=== PATIENT | female | born 1980 | race Caucasian/White ===

== ENCOUNTER 2019-10-06 17:27 | Emergency (ER) | payer OTHER, SELFPAY ==
[2019-10-06] VITALS (7 sets, daily range): BP systolic 112–150; BP diastolic 61–84; PULSE 67–107; RESP 14–20; TEMP 36.2–37.2; O2SAT 99–100
--- NOTE | ~2019-10-06 | CT_ITS ---
EXAMINATION: CT abdomen pelvis w con DATE: 10/06/2019 20:10 INDICATION: Left lower abdominal pain. Burning with urination. TECHNIQUE: Computed tomography (CT) of the abdomen and pelvis was performed with 100 cc Omnipaque 350 intravenous contrast. The dose-length product was 234.86 mGy-cm. Automated exposure control and iter ative reconstruction technique were employed. COMPARISON: None. FINDINGS: Lung bases are unremarkable. Heart size normal. No significant pleural or pericardial effus ion. The liver, spleen, pancreas, adrenal glands and kidneys are unremarkable. Gallbladder is present. Nor mal appendix. There is mild thickening of the descending and sigmoid colon without obstruction. No ev idence for perforation or abscess. Trace free fluid. No acute osseous abnormality. Mild bladder wall thickening. Cannot exclude cystitis. IMPRESSION: 1. Mild thickening of the descending and sigmoid colon which may be due to underdistention or colitis . 2: Mild bladder wall thickening. Cannot exclude cystitis. Reviewed, dictated and finalized at location A. IMPRESSION: 1. Mild thickening of the descending and sigmoid colon which may be due to unde rdistention or colitis. 2: Mild bladder wall thickening. Cannot exclude cystitis.
[2019-10-06 17:43] LABS: Basophils Percent Auto 0.3 % (0.2-1.2); Eosinophils Absolute Auto 0.1 K/mm3 (0-0.3); Eosinophils Percent Auto 0.7 % (0-4.4); Hematocrit 35.8 % (37.0-47.0); Immature Granulocyte Absolute 0.01 K/mm3 (0.00-0.031); Immature Granulocyte Percent A 0.1 % (0-0.5); Lymphocytes Percent Auto 16.2 % (18.3-44.2); Mean Corpuscular HGB Conc 33.5 g/dl (32-36); Mean Corpuscular Volume 89.5 fl (80-100); Mean Platelet Volume 11.9 fl (7.4-10.4); Monocytes Absolute Auto 0.8 K/mm3 (0.1-0.6); Monocytes Percent Auto 11.5 % (2.6-8.5); Neutrophils Absolute Auto 4.8 K/mm3 (1.3-6.7); Neutrophils Percent Auto 71.2 % (45.5-73.1); Platelet Count Result 185 k/mm3 (150-375); Red Cell Distribution Width 12.1 % (11.5-14.5); White Blood Count 6.8 K/mm3 (4.5-10.0)
[2019-10-06 17:55] LABS: Alanine Aminotransferase 10 U/L (4-35); Albumin Level 3.9 g/dL (3.5-5.1); Alkaline Phosphatase 71 U/L (38-126); Aspartate Amino Transferase 15 U/L (14-36); Bilirubin,Total 0.2 mg/dL (0.2-1.3); Blood Urea Nitrogen 11 mg/dL (7-17); Calcium 8.6 mg/dL (8.4-10.2); Carbon Dioxide 25 mmol/L (22-30); Chloride 102 mmol/L (98-107); Estimated Glomerular Filt Rate > 60; Glucose 82 mg/dL (65-105); Lipase 29 U/L (23-300); Potassium 3.4 mmol/L (3.4-5.0); Sodium 134 mmol/L (137-145)
[2019-10-06 18:05] LABS: Add Urine Microscopic? YES; Appearance Urine Cloudy (Clear); Bacteria Urine Trace /hpf; Bilirubin Urine Negative (Negative); Blood Urine 1+ (Negative); Color Urine Yellow (Yellow); Glucose Urine UA Negative (Negative); Ketones Urine Negative (Negative); Leukocyte Esterase Ur 3+ LEU/UL (Negative); Mucus Urine Rare /lpf; Nitrate Urine Negative (Negative); Protein Urine Negative (Negative); Renal Epithelial Cells Urine Rare /hpf (None Seen); Specific Grav Ur 1.006 (1.001-1.035); Squamous Epithelial Cell Urine Many /hpf (Few); Urobilinogen Urine Negative mg/dL (<2.0); WBC Clumps Urine Present /HPF; WBC Urine >75 /hpf
--- NOTE | 2019-10-06 19:09 | ED.ABDPAIN ---
HPI - Abdominal Pain General Chief Complaint: Abdominal Pain Stated Complaint: abd pain x 3 days Time Seen by Provider: 10/06/19 18:55 Source: patient Mode of arrival: ambulatory Limitations: no limitations History of Present Illness HPI narrative: This patient is a 39 year old female who presents for evaluation of left lower abdominal pain for 3 days . She reports constant sharp . Today she feels like her pain is moving to RLQ. She has not taken anything for her pain. She denies vomiting or diarrhea. She does have increased urination and dysuria. She denies hematuria. MD elicited complaint: abdominal pain Onset (ago): day(s) (3) Pain Consistency: constant Location: LLQ Quality: sharp Related Data Allergies Allergy/AdvReac Type Severity Reaction Status Date / Time No Known Allergies Allergy Unknown Verified 10/06/19 18:34 Review of Systems Review of Systems: All systems reviewed & are unremarkable except as noted in HPI and below Constitutional: Constitutional: Denies chills and Denies fever(s) Cardiovascular: Cardiovascular: Denies chest pain Gastrointestinal: Gastrointestinal: Reports abdominal pain, Denies bloating, Denies constipation, Denies diarrhea and Denies vomiting Genitourinary: Genitourinary: Denies hematuria, Reports nocturia and Reports flank pain Musculoskeletal: Musculoskeletal: Reports back pain PMFSH Past Medical History Medical History (Updated 10/06/19 @ 21:18 by Roro Guerrero MD) Patient denies medical problems Surgical History Surgical History History of tubal ligation Social History Social History Smoking packs per day: 0.5 Smoking cigarettes per day: 10.0 Smoking status: Current every day smoker Alcohol intake: never Gender identity (if verbalized by the patient): Female Exam Narrative: Exam Narrative: GENERAL: Well-appearing, well-nourished, mild distress due to pain HEAD: Normocephalic, atraumatic EYES: PERRLA and EOMI, conjunctiva clear without discharge THROAT:Mucous membranes moist, Oropharynx normal without erythema, exudate, peritonsillar swelling or fluctuance NECK: Supple, without lymphadenopathy or mass RESPIRATORY: No respiratory distress, Airway patent, Respirations non-labored, Clear to auscultation without rales, rhonchi or wheeze HEART: Regular rate and rhythm. No murmur heard. Normal peripheral pulses. ABDOMEN: Soft,LLQ tenderness, nondistended, normal active bowel sounds. No masses. No rebound or guarding, No organomegaly. EXTREMITIES: No edema, normal strength with full range of motion. SKIN: Warm, dry, normal color without rash NEURO: Alert and oriented x3. CN 2-12 grossly intact. No focal deficits. PSYCH: Normal mood and affect. Course Reevaluation(s) Reevaluation #1: Patient appears to be more comfortable. I discussed CT results . She will be treated for UTI. Date: 10/06/19 Time: 21:10 Vital Signs Vital signs: Vital Signs Temperature 98.9 F 10/06/19 17:34 Pulse Rate 107 H 10/06/19 17:34 Respiratory Rate 17 10/06/19 17:34 Blood Pressure 150/76 H 10/06/19 17:34 Pulse Oximetry 100 10/06/19 17:34 Temperature 97.2 F L 10/06/19 21:47 Pulse Rate 69 10/06/19 21:47 Respiratory Rate 16 10/06/19 21:47 Blood Pressure 129/61 10/06/19 21:47 Pulse Oximetry 99 10/06/19 21:47 MDM - Abdominal Pain Lab Data Attestation: I reviewed the patient's lab results. Result diagrams: 10/06/19 17:37 10/06/19 17:37 Labs: Lab Results 10/06/19 10/06/19 10/06/19 Range/Units 17:37 17:37 17:45 WBC 6.8 (4.5-10.0) K/mm3 RBC 4.00 L (4.2-5.4) M/mm3 Hgb 12.0 (12.0-15.0) g/dL Hct 35.8 L (37.0-47.0) % MCV 89.5 (80-100) fl MCH 30.0 (26-34) pg MCHC 33.5 (32-36) g/dl RDW 12.1 (11.5-14.5) % Plt Count 185 (150-375) k/mm3 MPV 11.9 H (
[2019-10-06] MEDS: MORPHINE SULFATE 4 MG/ML INJ IV PUSH (19:15)
[2019-10-06] MEDS: ONDANSETRON INJ 4 MG/2 ML VIAL IV PUSH (19:15)
[2019-10-06] MEDS: LACTATED RINGERS 1,000 ML 999 ML IV CONT (19:20)
== END 2019-10-06 21:49 | disposition home or self-care (01) ==
PROVIDERS: Family Medicine; Emergency Provider General Practice
DX: N30.90 Cystitis, unspecified without hematuria (principal); F17.210 Nicotine dependence, cigarettes, uncomplicated; R93.3 Abnormal findings on diagnostic imaging of other parts of digestive tract
CPT/HCPCS: 36415; 74177; 80053; 81001; 81025; 83690; 85025; 87077; 87086; 87088; 87186; 96361; 96365; 96375; 99284; J0131; J0696; J2270; J2405; J7120; Q9967

== ENCOUNTER 2020-10-16 18:01 | Emergency (ER) | payer OTHER, SELFPAY ==
[2020-10-16 18:03] VITALS: BP 136/99; PULSE 119; RESP 18; TEMP 36.8; O2SAT 100
--- NOTE | 2020-10-16 18:50 | ED.DENTAL ---
HPI - Dental/Oral General Chief complaint: Dental/Oral Stated complaint: broken tooth Time Seen by Provider: 10/16/20 18:09 Source: patient Mode of arrival: ambulatory Limitations: no limitations History of Present Illness HPI Narrative: Patient is a 40-year-old female who presents complaining of right upper dental pain. Patient reports right upper dental pain x3 days. Reports taking [id number] medications without relief. She denies significant medical history. She denies all other complaints at this time. Patient reports pain is 10/10. MD Complaint: tooth pain Related Data Allergies Allergy/AdvReac Type Severity Reaction Status Date / Time No Known Allergies Allergy Unknown Verified 10/16/20 18:40 Review of Systems Review of Systems: Narrative: CONSTITUTIONAL: Denies fever, chills, or sweats. EYES: Denies visual changes, redness, or discharge. ENT: Denies rhinorrhea, congestion, sore throat, or otalgia. Reports right upper dental pain CARDIOVASCULAR: Denies chest pain, palpitations, or edema. RESPIRATORY: Denies cough or dyspnea. GASTROINTESTINAL: Denies abdominal pain, nausea, vomiting, or diarrhea. GENITOURINARY: Denies dysuria or hematuria. SKIN: Denies rash or itching. MUSCULOSKELETAL: Denies back pain, joint pain, or myalgia. NEUROLOGIC: Denies headache, numbness, dizziness, or weakness. PSYCHIATRIC: Denies anxiety or depression. PMFSH Past Medical History Medical History Patient denies medical problems Surgical History Surgical History History of tubal ligation Social History Social History (Updated 10/16/20 @ 18:51 by DEACON Mahoney) Smoking packs per day: 0.5 Smoking cigarettes per day: 10.0 Smoking status: Current every day smoker Tobacco type: cigarettes Alcohol intake: never Substance use: current Substance use type: marijuana Gender identity (if verbalized by the patient): Female Comments At the time of signature, I have reviewed and agree with nursing past medical, surgical, social, and family history unless otherwise noted. Please see nursing chart for further information. There is no relevant family history pertinent to the presenting complaint. Exam Narrative: Exam Narrative: GENERAL: Well-appearing, well-nourished, and in no acute distress. HEAD: Normocephalic, atraumatic. EYES: EOMI. No redness or drainage. Conjunctiva are normal. ENT: Mucous membranes pink and moist. Multiple dental caries and dental fractures, poor dentition CHEST: No respiratory distress. HEART: Regular rate and rhythm. EXTREMITIES: Normal range of motion. SKIN: Warm, dry, no rash. NEURO: No focal deficits. Alert and oriented x3. Gait steady. PSYCH: Normal affect. No signs of depression or anxiety. Course Vital Signs Vital signs: Vital Signs Temperature 36.8 C 10/16/20 18:03 Pulse Rate 119 H 10/16/20 18:03 Respiratory Rate 18 10/16/20 18:03 Blood Pressure 136/99 H 10/16/20 18:03 Pulse Oximetry 100 10/16/20 18:03 Temperature 36.8 C 10/16/20 18:03 Pulse Rate 119 H 10/16/20 18:03 Respiratory Rate 18 10/16/20 18:03 Blood Pressure 136/99 H 10/16/20 18:03 Pulse Oximetry 100 10/16/20 18:03 MDM - Dental/Oral MDM Narrative Medical decision making narrative: Discussed with patient most likely dental infection. Patient has poor dentition with multiple dental caries and dental fractures as well as missing teeth. Discussed with patient the need to find a dentist. Patient started on antibiotics at this time. Patient is stable for discharge to home with outpatient follow-up as needed. Differential Diagnosis Differential diagnosis: Likely gingival abscess, dental caries, toothache, dental abscess and fracture of tooth Critical Care Time Critical Care Time Critical Care Time: No Discharge Plan Discharge Clinical Impression: Toothache
[2020-10-16 19:14] VITALS: BP 136/85; PULSE 86; RESP 16; TEMP 36.2; O2SAT 100
== END 2020-10-16 19:15 | disposition home or self-care (01) ==
PROVIDERS: Emergency Provider Nurse Practitioner
DX: K02.9 Dental caries, unspecified (principal); F17.210 Nicotine dependence, cigarettes, uncomplicated
CPT/HCPCS: 99283

== ENCOUNTER 2021-01-08 19:38 | Emergency (ER) | payer OTHER, SELFPAY ==
--- NOTE | ~2021-01-08 | CT_ITS ---
EXAMINATION: CT abdomen pelvis wo con DATE: 01/08/2021 22:56 INDICATION: Abdominal pain. Nausea, vomiting, and diarrhea. TECHNIQUE: Computed tomography (CT) of the abdomen and pelvis was performed without intravenous contr ast. Automated exposure control and iterative reconstruction technique were employed. The dose-length product was 252.04 mGy-cm. COMPARISON: CT abdomen and pelvis 10/06/2019 FINDINGS: The visualized portions of the lung bases demonstrate mild atelectasis. No pleural effusion . The heart size is normal. No pericardial effusion. The liver, gallbladder, spleen, pancreas, adrena l glands, and left kidney are normal. There is a 2 mm stone in right kidney. There are no dilated loo ps of bowel. The appendix is normal. There are no pathologically enlarged lymph nodes. There is no fr ee intraperitoneal fluid. There is mild thoracolumbar spondylosis. IMPRESSION: 1. Small nonobstructing right kidney stone. Reviewed, dictated and finalized at location A.
--- NOTE | ~2021-01-08 | XR_ITS ---
EXAMINATION: XR chest 1V portable DATE: 01/08/2021 21:20 INDICATION: Cough. Loss of taste and smell. TECHNIQUE: A single frontal view of the chest was obtained. COMPARISON: CT abdomen and pelvis 10/06/19 FINDINGS: The chest demonstrates clear lungs without pneumonia, pleural effusion, or pneumothorax. Th e heart size is normal. IMPRESSION: 1. No acute cardiopulmonary disease. Reviewed, dictated and finalized at location A.
[2021-01-08 20:23] VITALS: BP 140/86; PULSE 101; RESP 20; TEMP 36.3; O2SAT 100
[2021-01-08 20:38] LABS: Basophils Absolute Auto 0.1 K/mm3 (0.0-0.1); Basophils Percent Auto 0.7 % (0.2-1.2); Eosinophils Percent Auto 0.6 % (0-4.4); Hematocrit 42.1 % (37.0-47.0); Immature Granulocyte Absolute 0.02 K/mm3 (0.00-0.031); Immature Granulocyte Percent A 0.3 % (0-0.5); Lymphocytes Absolute Auto 1.65 K/mm3 (0.9-3.2); Lymphocytes Percent Auto 22.7 % (18.3-44.2); Mean Corpuscular HGB Conc 33.3 g/dl (32-36); Mean Corpuscular Hemoglobin 30.7 pg (26-34); Mean Corpuscular Volume 92.3 fl (80-100); Mean Platelet Volume 11.3 fl (7.4-10.4); Monocytes Absolute Auto 0.4 K/mm3 (0.1-0.6); Monocytes Percent Auto 5.5 % (2.6-8.5); Neutrophils Absolute Auto 5.1 K/mm3 (1.3-6.7); Neutrophils Percent Auto 70.2 % (45.5-73.1); Platelet Count Result 194 k/mm3 (150-375); Red Blood Count 4.56 M/mm3 (4.2-5.4); Red Cell Distribution Width 12.2 % (11.5-14.5); White Blood Count 7.3 K/mm3 (4.5-10.0)
[2021-01-08 20:48] LABS: Alanine Aminotransferase 12 U/L (4-35); Albumin Level 4.2 g/dL (3.5-5.1); Alkaline Phosphatase 57 U/L (38-126); Anion Gap 6 mmol/L (8-16); Aspartate Amino Transferase 32 U/L (14-36); Bilirubin,Total 0.2 mg/dL (0.2-1.3); Blood Urea Nitrogen 13 mg/dL (7-17); Calcium 8.9 mg/dL (8.4-10.2); Carbon Dioxide 25 mmol/L (22-30); Chloride 111 mmol/L (98-107); Estimated CRCL calculation 54 ml/min; Estimated Glomerular Filt Rate > 60; Glucose 93 mg/dL (65-110); Lipase 37 U/L (23-300); Potassium 3.6 mmol/L (3.4-5.0); Sodium 142 mmol/L (137-145)
--- NOTE | 2021-01-08 21:12 | ED.GENADULT ---
HPI - General Adult General Chief complaint: Nausea/Vomiting/Diarrhea Stated complaint: covid symptoms Time Seen by Provider: 01/08/21 20:59 Source: RN notes reviewed History of Present Illness HPI narrative: Patient presents emergency department from home for nausea. Patient states symptoms began approximately 2 weeks ago states she lost her sense of smell and taste. States she has had a cough this been nonproductive she some intermittent abdominal pain described as cramping and nausea she denies any vomiting or diarrhea. States she did not have a Covid 19 vaccination she denies any fevers or chills chest pain or any other symptoms Related Data Allergies Allergy/AdvReac Type Severity Reaction Status Date / Time No Known Allergies Allergy Unknown Verified 10/16/20 18:40 Review of Systems Review of Systems: Gen.: Denies fevers or chills ENT: Denies congestion reports loss of smell and taste Respiratory: Denies shortness of breath reports cough CV: Denies chest pain or palpitations GI: See HPI Musculoskeletal: Denies back pain or muscle pain Neuro: Denies numbness, tingling, weakness or focal weakness Skin: Denies rash Except as documented, all other systems reviewed and negative [facility] Past Medical History Medical History Patient denies medical problems Surgical History Surgical History History of tubal ligation Social History Social History Smoking packs per day: 0.5 Smoking cigarettes per day: 10.0 Smoking status: Current every day smoker Tobacco type: cigarettes Alcohol intake: never Substance use: current Substance use type: marijuana Gender identity (if verbalized by the patient): Female Exam Narrative: APPEARANCE: No acute distress, nontoxic, resting in bed EYES: EOMI HEENT: Normocephalic, atraumatic, OMM RESPIRATORY: No respiratory distress Clear to auscultation bilaterally with no rhonchi wheezing or rales. CARDIOVASCULAR: Regular rate and rhythm without murmurs rubs or gallops. ABDOMINAL: Soft, nontender, nondistended, no rebound or guarding MUSCULOSKELETAl: Moves all extremities. No clubbing, cyanosis or edema. NEURO: Awake and alert. Following commands, speech normal, no focal deficits SKIN:: Warm, dry. No rashes lesions or abrasions PSYCHIATRIC: Normal affect/mood, Course Course Emergency Course: Patient states she is feeling much better at this time Discussed with patient results of workup and diagnosis. Discussed need for follow-up with primary care, proper use of medication, and reasons to return to the emergency department. Patient understands and agrees to current treatment plan. discussed with patient her Covid swab and need for self-isolation Vital Signs Vital signs: Vital Signs Temperature 97.4 F L 01/08/21 20:23 Pulse Rate 101 H 01/08/21 20:23 Respiratory Rate 20 01/08/21 20:23 Blood Pressure 140/86 01/08/21 20:23 Pulse Oximetry 100 01/08/21 20:23 Temperature 97.4 F L 01/08/21 20:23 Pulse Rate 101 H 01/08/21 20:23 Respiratory Rate 20 01/08/21 20:23 Blood Pressure 140/86 01/08/21 20:23 Pulse Oximetry 100 01/08/21 20:23 Medical Decision Making Vital Signs Vital Signs: Vital Signs Temperature 97.4 F L 01/08/21 20:23 Pulse Rate 101 H 01/08/21 20:23 Respiratory Rate 20 01/08/21 20:23 Blood Pressure 140/86 01/08/21 20:23 Pulse Oximetry 100 01/08/21 20:23 Temperature 97.4 F L 01/08/21 20:23 Pulse Rate 101 H 01/08/21 20:23 Respiratory Rate 20 01/08/21 20:23 Blood Pressure 140/86 01/08/21 20:23 Pulse Oximetry 100 01/08/21 20:23 Lab Data Result diagrams: 01/08/21 20:32 01/08/21 20:32 Labs: Lab Results 01/08/21 01/08/21 01/08/21 Range/Units 20:32 20:32 21:29 WBC 7.3 (4.5-10.0) K/mm3 RBC 4.56
[2021-01-08 21:39] LABS: Add Urine Microscopic? YES; Appearance Urine Cloudy (Clear); Bacteria Urine Trace /hpf; Bilirubin Urine Negative (Negative); Blood Urine 1+ (Negative); Color Urine Straw (Yellow); Glucose Urine UA Negative (Negative); Ketones Urine Negative (Negative); Leukocyte Esterase Ur 3+ LEU/UL (Negative); Nitrate Urine Negative (Negative); Protein Urine Negative (Negative); RBC Urine 51-75 /hpf (0-2); Squamous Epithelial Cell Urine Many /hpf (Few); Urobilinogen Urine Negative mg/dL (<2.0)
[2021-01-08 21:40] LABS: Specific Grav Ur 1.003 (1.001-1.035)
[2021-01-08] MEDS: SODIUM CHLORIDE 0.9% IV 1,000 ML 999 ML IV CONT (21:42)
[2021-01-08] MEDS: ONDANSETRON INJ 4 MG/2 ML VIAL IV PUSH (21:42)
[2021-01-09 00:15] VITALS: BP 134/81; PULSE 82; RESP 18; O2SAT 99
[2021-01-09 16:22] LABS: SARS-CoV-2 RNA PCR Negative
== END 2021-01-09 00:20 | disposition home or self-care (01) ==
PROVIDERS: Emergency Provider Emergency Medicine
DX: N39.0 Urinary tract infection, site not specified (principal); R11.2 Nausea with vomiting, unspecified; F17.210 Nicotine dependence, cigarettes, uncomplicated; Z20.822 Contact with and (suspected) exposure to COVID-19
CPT/HCPCS: 36415; 71045; 74176; 80053; 81001; 81025; 83690; 85025; 87086; 87088; 96361; 96365; 96375; 99284; C9803; J0696; J2405; J7030; U0003; U0005

== ENCOUNTER 2024-01-15 13:29 | Emergency (ER) | payer SELFPAY ==
--- NOTE | ~2024-01-15 | XR_ITS ---
EXAMINATION: XR elbow LT 2V DATE: 01/15/2024 14:47 INDICATION: Left elbow pain TECHNIQUE: Anteroposterior and lateral views of the left elbow were obtained. COMPARISON: None. FINDINGS: Alignment is normal. No fracture or joint effusion. Joint spaces are normal. Soft tissues are unremar kable. IMPRESSION: 1. Negative left elbow radiographs. Reviewed, dictated and finalized at location A.
--- NOTE | ~2024-01-15 | XR_ITS ---
EXAMINATION: XR shoulder LT min 2V DATE: 01/15/2024 14:13 INDICATION: Left shoulder pain TECHNIQUE: AP internally and externally rotated, AP oblique externally rotated and transscapular Y vi ews of the left shoulder were obtained. COMPARISON: None FINDINGS: Normal alignment. No fracture. Glenohumeral joint is normal. Acromioclavicular joint is normal. Soft tissues are unremarkable. Visualized portion of the lungs are clear. IMPRESSION: Negative left shoulder radiographs. Reviewed, dictated and finalized at location A.
[2024-01-15 13:30] VITALS: BP 136/87; PULSE 92; RESP 16; TEMP 36.4; O2SAT 100
--- NOTE | 2024-01-15 14:27 | ED.EXTPRO ---
HPI - Extremity Problem General Chief complaint: Extremity Problem,Nontraumatic Stated complaint: left arm injury Time Seen by Provider: 01/15/24 13:46 History of Present Illness HPI Narrative: 43-year-old female presenting with left shoulder pain. Patient states that for the last 6 months or so she has had left shoulder pain that now radiates into her left elbow. States that it sometimes wakes her from sleeping. Sometimes the pain shoots into her hand. Denies weakness or decreased range of motion. No neck pain or back pain. States that she did recently strike her elbow on something at work. Related Data Allergies Allergy/AdvReac Type Severity Reaction Status Date / Time No Known Allergies Allergy Unknown Verified 01/15/24 13:30 Review of Systems Review of Systems: All systems reviewed & are unremarkable except as noted in HPI and below PMFSH Past Medical History Medical History Patient denies medical problems Surgical History Surgical History History of tubal ligation Social History Social History Smoking packs per day: 0.5 Smoking cigarettes per day: 10.0 Smoking status: Current every day smoker Tobacco type: cigarettes Alcohol intake: never Substance use: current Substance use type: marijuana Gender identity (if verbalized by the patient): Female Exam Narrative: GENERAL: Well-appearing, in no acute distress, pleasant cooperative HEAD: Normocephalic, atraumatic. EYES: PERRLA and EOMI. ENT: grossly unremarkable NECK: Supple. CHEST: No respiratory distress. HEART: Regular rate and rhythm. Normal peripheral pulses. EXTREMITIES: Normal range of motion. mild diffuse tenderness of left shoulder and left elbow, no edema or erythema, ROM intact of shoulder/elbow/wrist SKIN: Warm, dry, no rash. NEURO: Alert and oriented x3. PSYCH: Normal mood and affect. Course Vital Signs Vital signs: Vital Signs Temperature 97.6 F 01/15/24 13:30 Pulse Rate 92 01/15/24 13:30 Respiratory Rate 16 01/15/24 13:30 Blood Pressure 136/87 01/15/24 13:30 Pulse Oximetry 100 01/15/24 13:30 Oxygen Delivery Room Air 01/15/24 13:30 Temperature 97.6 F 01/15/24 13:30 Pulse Rate 92 01/15/24 13:30 Respiratory Rate 16 01/15/24 13:30 Blood Pressure 136/87 01/15/24 13:30 Pulse Oximetry 100 01/15/24 13:30 Oxygen Delivery Room Air 01/15/24 13:30 MDM - Extremity (Nontraumatic) MDM Narrative Medical decision making narrative: 43-year-old female presenting with left arm pain. Vital stable. Exam remarkable for the above. X-ray show no acute abnormalities. Patient is safe for outpatient management. Discussed appropriate follow-up and return precautions. She is agreeable with this plan. Discharged in stable condition. Differential Diagnosis Differential diagnosis: Likely other (Shoulder pain, elbow pain, arm pain) Medical Records Attestation: I reviewed the patient's medical records. Imaging Data Radiologist's impression: ITS Impressions Shoulder X-Ray 01/15/24 14:37 IMPRESSION: Negative left shoulder radiographs. Elbow X-Ray 01/15/24 15:02 IMPRESSION: 1. Negative left elbow radiographs. Critical Care Time Critical Care Time Critical Care Time: No Discharge Plan Discharge Clinical Impression: Left arm pain Patient Disposition: Home, Self-Care Condition: Stable Instructions: Antibiotic Form, Arm Pain (ED) Additional Instructions: The x-rays today show no abnormalities. We are prescribing a muscle relaxer to help with your symptoms. Please also use Tylenol and ibuprofen. Please follow-up with primary care and orthopedic surgery. If your symptoms worsen or other concerning symptoms arise, please return to the ER. Prescriptions: New cycloben
[2024-01-15 15:50] VITALS: BP 135/89; PULSE 79; RESP 18; TEMP 36.5; O2SAT 98
== END 2024-01-15 15:54 | disposition home or self-care (01) ==
PROVIDERS: Emergency Provider Emergency Medicine
DX: M25.512 Pain in left shoulder (principal); M25.522 Pain in left elbow; F17.210 Nicotine dependence, cigarettes, uncomplicated
CPT/HCPCS: 73030; 73070; 99284

== ENCOUNTER 2024-09-08 12:26 | Emergency (ER) | payer SELFPAY ==
[2024-09-08 12:37] VITALS: BP 124/93; PULSE 86; RESP 18; TEMP 36.6; O2SAT 99
--- NOTE | 2024-09-08 14:08 | ED_ITS ---
HPI - Skin/Abscess/Foreign Bdy General Chief complaint: Skin/Abscess/Foreign Body Stated complaint: RASH ALL OVER BODY Time Seen by Provider: 09/08/24 12:46 Source: patient Mode of arrival: ambulatory Limitations: no limitations History of Present Illness HPI narrative: Patient is a 44-year-old female who presents the ED with report of a diffuse rash. Patient reports she noticed a rash around 3 days ago. She states began as small blisters on her lower legs. She has also noticed some lesions on her arms, below her right breast, and on her back. States the lesions pop and then scab over within a couple of days. States the rash is itchy/painful. Denies ever having similar rash like this before. Denies shortness of breath, swelling of lips/tongue, fevers. Denies new medications, soaps, laundry detergents. Related Data Allergies Allergy/AdvReac Type Severity Reaction Status Date / Time codeine Allergy Unknown Verified 09/08/24 12:33 Review of Systems Review of Systems: All systems reviewed & are unremarkable except as noted in HPI. All systems reviewed & are unremarkable except as noted in HPI and below PMFSH Past Medical History Medical History Patient denies medical problems Surgical History Surgical History History of tubal ligation Social History Social History Smoking packs per day: 0.5 Smoking cigarettes per day: 10.0 Smoking status: Current every day smoker Tobacco type: cigarettes Alcohol intake: never Substance use: current Substance use type: marijuana Gender identity (if verbalized by the patient): Female Exam Narrative: GENERAL: Well appearing, well-nourished, non-toxic, in no acute distress. HEAD: Normocephalic, atraumatic. RESPIRATORY: Airway patent, respirations nonlabored. Clear to auscultation bilaterally, no rales, rhonchi, wheezing. CARDIOVASCULAR: Regular rate and rhythm without murmurs, rubs, or gallops. MUSCULOSKELETAL: Moves all extremities. No gross deformities. SKIN: Warm, dry, normal color. Scattered pustular rash to lower extremities, right upper abdomen, back, occasionally on arms. Some lesions are scabbed over. No appreciable drainage, minimal erythema around lesions. NEURO: A&O X3. Speech clear. Cranial nerves II-XII grossly intact. Steady gait. No ataxic movements. PSYCHIATRIC: Appropriate mood and affect. Normal interaction. Course Vital Signs Vital signs: Vital Signs Temperature 97.9 F 09/08/24 12:37 Pulse Rate 86 09/08/24 12:37 Respiratory Rate 18 09/08/24 12:37 Blood Pressure 124/93 H 09/08/24 12:37 Pulse Oximetry 99 09/08/24 12:37 Oxygen Delivery Room Air 09/08/24 12:37 Temperature 97.9 F 09/08/24 12:37 Pulse Rate 80 09/08/24 15:49 Respiratory Rate 18 09/08/24 15:49 Blood Pressure 135/94 H 09/08/24 15:49 Pulse Oximetry 100 09/08/24 15:49 Oxygen Delivery Room Air 09/08/24 12:37 MDM - Skin/Abscess/Foreign Bdy MDM Narrative Medical decision making narrative: Pustular rash. Unclear etiology. Denies any new triggers. Will cover for bacterial process/MRSA with Bactrim. Advised to take Benadryl as needed for itching. Advised to avoid scratching or touching lesions. There is no evidence of anaphylaxis or systemic allergic reaction. Patient did request to be tested for STDs, including HIV and syphilis. Gonorrhea, chlamydia negative. Trichomonas negative. Syphilis negative. HIV negative. UA did appear infectious. Will be started on Bactrim to cover for rash and UTI. Patient in agreement with this plan. Advised to follow-up with her primary care doctor for further evaluation. Given strict return precautions. She agrees with plan. Discharged in stable condition. Medical Records Attestation: I reviewed the patient's medical records. Lab Data Attestation: I reviewed the patient's lab results. Labs: Lab Results 09/08/24 Range/Units 14:41 Urine Color Yellow (Yellow) Urine Appearance Cloudy H (Clear) Urine pH 5.5 (5.0-9.0) Ur Specific [place] 1.007 (1.001-1.035) Urine Protein Negative (Negative) mg/dL Urine Glucose (UA) Negative (Negative) mg/dL Urine Ketones Negative (Negative) mg/dL Ur Blood (Man) Negative (Negative) Urine Nitrate Positive H (Negative) Urine Bilirubin Negative (Negative) Urine Urobilinogen 0.2 (<2.0) mg/dL Leukocyte Esterase Rfl 1+ H (Negative) JUAN JOSE/UL Urine RBC 0-2 (0-2) /hpf Urine WBC 21-50 H (0-3) /hpf Ur Squamous Epith Cells Moderate (Few) /hpf Urine Bacteria 4+ H /hpf Urine Casts 0-2 Syphilis IgG/IgM Ab Non-reactive (Nonreactive) C. trachomatis (PCR) Not detected (NOT DETECTE) HIV 1&2 Ab/P24 Ag 4thGn Negative (Negative) N. gonorrhoeae (PCR) Not detected (NOT DETECTE) T. vaginalis (PCR) Not detected (NOT DETECTE) Discharge Plan Discharge Clinical Impression: Pustular rash UTI (urinary tract infection) Qualifiers: Urinary tract infection type: acute cystitis Hematuria presence: without hematuria Qualified Code(s): N30.00 - Acute cystitis without hematuria Patient Disposition: Home Condition: Stable Instructions: Antibiotic Form, Urinary Tract Infection in Women (ED), Impetigo (ED), Acute Rash (ED), Folliculitis (ED) Additional Instructions: Your testing for STDs resulted negative. You are being treated for urinary tract infection. Take antibiotics as prescribed. This may also help with the rash. Continue to monitor symptoms. Avoid picking at rash. Follow-up with your primary care doctor for further evaluation. Patient Language: Yakut Prescriptions: New sulfamethoxazole-trimethoprim [Bactrim DS] 800-160 mg tablet 1 tablet PO Q12H 7 Days Qty: 14 0RF No Action amoxicillin-pot clavulanate 875-125 mg tablet 1 tablet PO Q12H 10 Days Qty: 20 0RF ibuprofen 800 mg tablet 800 mg PO TID PRN (Reason: pain) Qty: 20 0RF cyclobenzaprine 10 mg tablet 10 mg PO TID PRN (Reason: muscle spasm) Qty: 20 0RF ibuprofen [IBU] 600 mg tablet 600 mg PO Q6H PRN (Reason: pain) Qty: 20 0RF ondansetron 4 mg tablet,disintegrating 4 mg PO Q6H PRN (Reason: nausea and vomiting) Qty: 10 0RF sulfamethoxazole-trimethoprim [Bactrim DS] 800-160 mg tablet 1 tablet PO Q12H Qty: 14 0RF Follow-up/Referrals: Mykel Barrera DO [Physician] - (PRIMARY CARE) UNKNOWN,DOCTOR [Primary Care Provider] - Time of Disposition: 16:37
[2024-09-08 15:09] LABS: Add Urine Microscopic? YES; Appearance Urine Cloudy (Clear); Bacteria Urine 4+ /hpf; Bilirubin Urine Negative (Negative); Blood Urine Negative (Negative); Color Urine Yellow (Yellow); Glucose Urine UA Negative (Negative); Ketones Urine Negative (Negative); Leukocyte Esterase Ur 1+ LEU/UL (Negative); Nitrate Urine Positive (Negative); Non Pathogenic Casts 0-2; Protein Urine Negative (Negative); RBC Urine 0-2 /hpf (0-2); Specific Grav Ur 1.007 (1.001-1.035); Squamous Epithelial Cell Urine Moderate /hpf (Few); Urobilinogen Urine 0.2 mg/dL (<2.0); WBC Urine 21-50 /hpf (0-3); pH Urine 5.5 (5.0-9.0)
[2024-09-08 15:49] VITALS: BP 135/94; PULSE 80; RESP 18; O2SAT 100
[2024-09-08 16:03] LABS: HIV 1/2 Ab P24 Ag Result Negative (Negative)
[2024-09-08 16:07] LABS: Trichomonas Vag PCR NOT DETECTED (NOT DETECTE)
[2024-09-08 16:11] LABS: Syphilis IgG/IgM Antibody Non-Reactive (Nonreactive)
[2024-09-08 16:30] LABS: Chlamydia trachomatis NOT DETECTED (NOT DETECTE); Neisseria gonorrhoeae PCR NOT DETECTED (NOT DETECTE)
== END 2024-09-08 16:46 | disposition home or self-care (01) ==
PROVIDERS: Emergency Provider Physician Assistant
DX: N30.00 Acute cystitis without hematuria (principal); R21 Rash and other nonspecific skin eruption; Z11.4 Encounter for screening for human immunodeficiency virus [HIV]; Z11.3 Encounter for screening for infections with a predominantly sexual mode of transmission; F17.210 Nicotine dependence, cigarettes, uncomplicated
CPT/HCPCS: 36415; 81001; 86593; 86703; 87491; 87591; 87661; 99284; G0432